=== PATIENT | female | born 1995 | race Caucasian/White ===

== ENCOUNTER 2017-07-11 23:21 | Emergency (ER) | payer OTHER ==
[2017-07-12 01:11] VITALS: BP 117/70
== END 2017-07-12 01:11 | disposition home or self-care (01) ==
LOC: ED 23:21
DX: B34.9 Viral infection, unspecified (principal); K21.9 Gastro-esophageal reflux disease without esophagitis; Z90.49 Acquired absence of other specified parts of digestive tract; Z88.5 Allergy status to narcotic agent
CPT/HCPCS: J1100; J1885

== ENCOUNTER 2017-11-20 12:35 | Emergency (ER) | payer OTHER ==
[~2017-11-20] VITALS: Ht 157.5 cm; Wt 113.8 kg
[2017-11-20 12:42] VITALS: Ht 157.5 cm; Wt 113.8 kg
[2017-11-20 13:28] VITALS: BP 118/75
== END 2017-11-20 13:28 | disposition home or self-care (01) ==
LOC: ED 12:35
DX: S40.011A Contusion of right shoulder, initial encounter (principal); Z90.49 Acquired absence of other specified parts of digestive tract; Z90.89 Acquired absence of other organs; Z88.5 Allergy status to narcotic agent; Z88.6 Allergy status to analgesic agent; W18.39XA Other fall on same level, initial encounter; Y93.89 Activity, other specified; Y92.89 Other specified places as the place of occurrence of the external cause; Y99.8 Other external cause status
CPT/HCPCS: Q0092

== ENCOUNTER 2018-05-28 09:08 | Inpatient (IN) | payer OTHER ==
[~2018-05-28] VITALS: Ht 162.6 cm; Wt 110.8 kg
[2018-05-28 09:56] LABS: CALCIUM 8.6 mg/dL (8.5-10.1); CARBON DIOXIDE 28.7 mmol/L (21-32); CHLORIDE SERUM 103 mmol/L (98-107); CREATININE SERUM 0.8 mg/dL (0.6-1.0); GFR1 > 60 mL/min; GLUCOSE SERUM 120 mg/dL (74-106); POTASSIUM SERUM 4.1 mmol/L (3.5-5.1); SODIUM SERUM 138 mmol/L (136-145)
[2018-05-28 09:57] LABS: BASOPHIL % 0.4 % (0-2); PLATELET COUNT 202 x10^3mcL (130-400); RED CELL DISTRIBUTION WIDTH 13.8 % (11.5-14.5)
[2018-05-28 10:02] LABS: ALBUMIN 3.5 g/dL (3.4-5.0); ALKALINE PHOSPHATASE 177 U/L (46-116); ALT/SGPT 660 U/L (14-59); AST/SGOT 638 U/L (15-37); BILIRUBIN TOTAL 2.6 mg/dL (0.20-1.00); LIPASE 210 IU/L (73-393); TOTAL PROTEIN, SERUM 7.7 g/dL (6.4-8.2)
[2018-05-28] MEDS ORDERED: PROZ10 PO (12:19)
[2018-05-28 14:41] VITALS: BP 118/62
[2018-05-28 16:24] VITALS: Ht 162.6 cm; Wt 110.8 kg
[2018-05-28 18:10] LABS: microscopic required? YES; urine erythrocyte NEGATIVE (NEGATIVE)
[2018-05-28 18:15] VITALS: BP 115/70
[2018-05-28 18:36] LABS: T3 TOTAL 1.14 ng/mL
[2018-05-28 18:40] LABS: MAGNESIUM 1.9 mg/dL (1.8-2.4); PHOSPHOROUS 3.5 mg/dL (2.5-4.9)
[2018-05-28 18:44] LABS: CHOLESTEROL/HDL RATIO 1.5
[2018-05-28 18:53] LABS: FREE T4 1.36 ng/dL (0.76-1.46)
[2018-05-28 19:19] LABS: AMPHETAMINE QUAL UR NONE DETECTED (See below)
[2018-05-28 20:37] VITALS: BP 115/62
[2018-05-29 06:10] VITALS: BP 111/55
[2018-05-29 07:21] LABS: CALCIUM 8.3 mg/dL (8.5-10.1); CARBON DIOXIDE 26.3 mmol/L (21-32); CHLORIDE SERUM 108 mmol/L (98-107); CREATININE SERUM 0.8 mg/dL (0.6-1.0); GFR1 > 60 mL/min; GLUCOSE SERUM 92 mg/dL (74-106); MAGNESIUM 1.8 mg/dL (1.8-2.4); PHOSPHOROUS 3.9 mg/dL (2.5-4.9); POTASSIUM SERUM 3.7 mmol/L (3.5-5.1); SODIUM SERUM 144 mmol/L (136-145)
[2018-05-29 07:39] LABS: BASOPHIL % 0.6 % (0-2); PLATELET COUNT 183 x10^3mcL (130-400); RED CELL DISTRIBUTION WIDTH 14.3 % (11.5-14.5)
[2018-05-29 08:25] VITALS: BP 115/75
[2018-05-29 11:31] LABS: BILIRUBIN DIRECT 0.61 mg/dL (0.0-0.2); BILIRUBIN TOTAL 1.24 mg/dL (0.20-1.00); TOTAL PROTEIN, SERUM 6.4 g/dL (6.4-8.2)
[2018-05-29 11:32] LABS: ALBUMIN 2.8 g/dL (3.4-5.0)
[2018-05-29 16:01] VITALS: BP 124/85
[2018-05-29 18:58] VITALS: BP 124/85
== END 2018-05-29 20:00 | disposition home or self-care (01) ==
LOC: ED 09:08 → MU 13:17
PROVIDERS: Emergency Medicine; Family Medicine; Internal Medicine Gastroenterology
DX: K80.50 Calculus of bile duct without cholangitis or cholecystitis without obstruction (principal); N17.0 Acute kidney failure with tubular necrosis; F32.9 Major depressive disorder, single episode, unspecified; F12.90 Cannabis use, unspecified, uncomplicated; E66.01 Morbid (severe) obesity due to excess calories; R74.0 Nonspecific elevation of levels of transaminase and lactic acid dehydrogenase [LDH]; Z68.41 Body mass index [BMI] 40.0-44.9, adult; Z90.49 Acquired absence of other specified parts of digestive tract; Z90.89 Acquired absence of other organs; Z82.49 Family history of ischemic heart disease and other diseases of the circulatory system; Z80.8 Family history of malignant neoplasm of other organs or systems; Z83.49 Family history of other endocrine, nutritional and metabolic diseases; Z88.6 Allergy status to analgesic agent
CPT/HCPCS: 74181; 83880; 84439; G0480; J0295; J1885; J3490; J7030; Q0092; Q0162